=== PATIENT | male | born 1955 | race Caucasian/White ===

== ENCOUNTER 2024-10-19 10:48 | Outpatient (CLI) | payer OTHER, SELFPAY | END 2024-10-19 10:49 | disposition home or self-care (01) | PROVIDERS: PCP Nurse Practitioner Family; Visit Provider Nurse Practitioner Family | DX: E78.5 Hyperlipidemia, unspecified (principal); E11.65 Type 2 diabetes mellitus with hyperglycemia; Z79.84 Long term (current) use of oral hypoglycemic drugs; Z12.5 Encounter for screening for malignant neoplasm of prostate | CPT/HCPCS: 80053; 80061; 83036; 85025; G0103 ==

== ENCOUNTER 2024-10-26 09:22 | Outpatient (CLI) | payer OTHER, SELFPAY | END 2024-10-26 09:23 | disposition home or self-care (01) | LOC: KYNREF 09:24 | PROVIDERS: PCP Nurse Practitioner Family; Visit Provider Nurse Practitioner Family | DX: E11.65 Type 2 diabetes mellitus with hyperglycemia (principal); Z79.84 Long term (current) use of oral hypoglycemic drugs | CPT/HCPCS: 82043; 82570 ==

== ENCOUNTER 2024-11-19 10:13 | Outpatient (CLI) | payer OTHER, SELFPAY ==
[2024-11-19] MEDS: PERFLUTREN LIPID MICROSPHERES 2 ML VIAL IVP (11:41)
== END 2024-11-19 10:14 | disposition home or self-care (01) ==
LOC: RAD 10:16
PROVIDERS: PCP Nurse Practitioner Family; Visit Provider Nurse Practitioner Family
DX: R94.31 Abnormal electrocardiogram [ECG] [EKG] (principal)
CPT/HCPCS: 93306; Q9957

== ENCOUNTER 2025-01-27 10:17 | Outpatient (CLI) | payer OTHER, SELFPAY | END 2025-01-27 10:18 | disposition home or self-care (01) | PROVIDERS: PCP Nurse Practitioner Family; Visit Provider Nurse Practitioner Family | DX: E78.5 Hyperlipidemia, unspecified (principal); E53.8 Deficiency of other specified B group vitamins | CPT/HCPCS: 80061; 80076; 82607; 84443 ==